=== PATIENT | male | born 1995 | race Caucasian/White ===

== ENCOUNTER 2018-02-12 11:31 | Emergency (ER) | payer OTHER ==
[~2018-02-12] VITALS: Ht 182.9 cm; Wt 62.6 kg
[2018-02-12] MEDS ORDERED: TRAMADOL 50 MG50 MG PO (13:17)
[2018-02-12] MEDS ORDERED: IBUPROFEN 600600 M1 PO (13:43)
[2018-02-12 14:25] VITALS: BP 150/88
== END 2018-02-12 14:26 | disposition home or self-care (01) ==
LOC: M.ERS 11:31
DX: S52.124A Nondisplaced fracture of head of right radius, initial encounter for closed fracture (principal); S62.002A Unspecified fracture of navicular [scaphoid] bone of left wrist, initial encounter for closed fracture; W01.0XXA Fall on same level from slipping, tripping and stumbling without subsequent striking against object, initial encounter; Y93.02 Activity, running; Y92.89 Other specified places as the place of occurrence of the external cause; Y99.8 Other external cause status